=== PATIENT | male | born 1955 | race Caucasian/White ===

== ENCOUNTER 2019-02-09 09:27 | Emergency (ER) | payer BC, OTHER ==
[2019-02-09 09:41] VITALS: BP 155/93
--- NOTE | 2019-02-09 10:17 | ED ---
Adult Trauma - HPI Summary HPI Summary: 63 yr old male with left posterior chest wall pain. He fell about 6 feet onto the ground. He complains of pain that is 8/10 with movement, 2/10 at rest. No SOB. The patient denies LOC or neck pain. He denies abdominal pain. He denies dizziness. He has no other complaint. He denies smoking and any history of cancer. - History of Current Complaint Chief Complaint: UCBackPain Stated Complaint: RIGHT SIDE/BACK PAIN - FELL 6FOOT Time Seen by Provider: 02/09/19 09:42 Pain Intensity: 2 - Allergy/Home Medications Allergies/Adverse Reactions: Allergies Allergy/AdvReac Type Severity Reaction Status Date / Time codeine Allergy Rash Verified 02/09/19 09:35 other med name unknown Allergy Unknown Uncoded 02/09/19 09:35 Reaction Details Home Medications: Home Medications Acetaminophen [Acetaminophen Extra Strength] 1,000 mg PO Q6H PRN 02/09/19 [ History Confirmed 02/09/19] Allopurinol TAB* [Zyloprim 300 MG TAB*] 300 mg PO DAILY 02/09/19 [History Confirmed 02/09/19] Amlodipine Besylate/Benazepril [Lotrel 10-40 mg] 1 cap PO DAILY 02/09/19 [ History Confirmed 02/09/19] metFORMIN* [Glucophage 500 MG TAB *] 500 mg PO BID 02/09/19 [History Confirmed 02/09/19] PMH/Surg Hx/FS Hx/Imm Hx Endocrine/Hematology History: Reports: Hx Diabetes Cardiovascular History: Reports: Hx Hypertension - Surgical History Surgery Procedure, Year, and Place: cholecystectomy. hernia repair Infectious Disease History: No Infectious Disease History: Denies: Traveled Outside the [place] in Last 30 Days - Family History Known Family History: Positive: None - Social History Occupation: Employed Full-time Alcohol Use: Rare Substance Use Type: Reports: None Smoking Status (MU): Current Some Day Smoker Type: Cigars Review of Systems Constitutional: Negative Positive: Other - chest wall pain All Other Systems Reviewed And Are Negative: Yes Physical Exam Triage Information Reviewed: Yes Vital Signs On Initial Exam: Initial Vitals Temp Pulse Resp BP Pulse Ox 98.7 F 88 20 155/93 100 02/09/19 09:33 02/09/19 09:33 02/09/19 09:33 02/09/19 09:33 02/09/19 09:33 Vital Signs Reviewed: Yes Appearance: Positive: Well-Appearing, No Pain Distress Skin: Positive: Warm, Skin Color Reflects Adequate Perfusion Head/Face: Positive: Normal Head/Face Inspection Eyes: Positive: EOMI, MARGARET ENT: Positive: Normal ENT inspection Neck: Positive: Supple, Nontender Respiratory/Lung Sounds: Positive: Clear to Auscultation, Breath Sounds Present , Other - tender to palpation over the left posterior ribs in the posterior axillary line Cardiovascular: Positive: RRR. Negative: Murmur Abdomen Description: Positive: Nontender. Negative: CVA Tenderness (R), CVA Tenderness (L) Musculoskeletal: Positive: Strength/ROM Intact Neurological: Positive: Sensory/Motor Intact, Alert, Oriented to Person Place, Time, CN Intact II-III Psychiatric: Positive: Normal - Yair Coma Scale Best Eye Response: 4 - Spontaneous Best Motor Response: 6 - Obeys Commands Best Verbal Response: 5 - Oriented Coma Scale Total: 15 Diagnostics - Vital Signs Vital Signs Temp Pulse Resp BP Pulse Ox 02/09/19 09:33 98.7 F 88 20 155/93 100 - Laboratory Lab Statement: Any lab studies that have been ordered have been reviewed, and results considered in the medical decision making process. Adult Trauma Course/Dx - Course Course Of Treatment: It was communicated to the patient that he has lung nodules and he needs to follow up with his primary care doctor in the next 4-6 weeks for follow up and monitoring of these to be sure they are not cancer. - Diagnoses Provider Diagnoses: Chest wall trauma, Lung nodule, Hypertension Discharge - Sign-Out/Discharge Documenting (check all that apply): Patient Departure All imaging exams completed and their final reports reviewed: Yes - Discharge Plan Condition: Good Disposition: HOME Prescriptions: Ibuprofen TAB* [Motrin TAB* 600 MG] 600 mg PO Q6H PRN #20 tab PRN Reason: Pain Patient Education Materials: Chest Wall Pain (ED), Rib Fracture (ED), Pulmonary Nodules (ED), Hypertension (ED) Forms: *Work Release Referrals: No Primary Care Phys,NOPCP [Primary Care Provider] - Diony Polo MD [Medical Doctor] - 2 Days Additional Instructions: You have lung nodules on your CT chest, and you require follow up with your primary doctor to be sure they do not increase in size and that they are not cancerous. Be sure to follow up within the next 4-6 weeks. - Billing Disposition and Condition Condition: GOOD Disposition: Home
[2019-02-09] MEDS ORDERED: Acetaminophen TAB* 325 MG PO ONE (11:17)
[2019-02-09] MEDS ORDERED: Ibuprofen TAB* 600 MG PO ONE (11:17)
== END 2019-02-09 11:28 | disposition home or self-care (01) ==
LOC: UCCORT 09:27
DX: S29.9XXA Unspecified injury of thorax, initial encounter (principal); I10 Essential (primary) hypertension; E11.9 Type 2 diabetes mellitus without complications; F17.210 Nicotine dependence, cigarettes, uncomplicated; Z88.5 Allergy status to narcotic agent; Z88.9 Allergy status to unspecified drugs, medicaments and biological substances; Z79.84 Long term (current) use of oral hypoglycemic drugs; W19.XXXA Unspecified fall, initial encounter; Y92.9 Unspecified place or not applicable
CPT/HCPCS: 71250; 99202; A9270-GY; G0463

== ENCOUNTER 2019-10-23 08:33 | Emergency (ER) | payer OTHER ==
[2019-10-23 09:32] VITALS: BP 139/59
[2019-10-23] MEDS ORDERED: Tetan/Diph/Pertus SYR(Tdap)* 0.5 ML SYR(BOOSTRIX) use SYR contains LATEX IM ONE (10:06)
--- NOTE | 2019-10-23 10:31 | UC ---
Hand/Wrist HPI - HPI Summary HPI Summary: left hand pain and swelling x 2 hrs ago pain is 6 out of 10 , worse with movement , better with rest/ ice s/p injury at work [place] fell on his left hand / crushing injury + pain / swelling/ bruising - History Of Current Complaint Chief Complaint: UCUpperExtremity Stated Complaint: LEFT HAND INJURY Time Seen by Provider: 10/23/19 09:29 Hx Obtained From: Patient Onset/Duration: Sudden Onset, Lasting Hours - 2, Still Present Severity Initially: Moderate Severity Currently: Moderate Pain Intensity: 4 Character Of Pain: Dull, Aching Aggravating Factor(s): Movement, Lifting, Flexion, Extension Alleviating Factor(s): Rest, Ice Associated Signs And Symptoms: Positive: Swelling, Bruising, Weakness. Negative : Redness, Numbness/Tingling - Allergies/Home Medications Allergies/Adverse Reactions: Allergies Allergy/AdvReac Type Severity Reaction Status Date / Time codeine Allergy Rash Verified 10/23/19 09:32 other med name unknown Allergy Unknown Uncoded 10/23/19 09:32 Reaction Details Home Medications: Home Medications Famotidine 40 mg PO DAILY 10/23/19 [History Confirmed 10/23/19] PMH/Surg Hx/FS Hx/Imm Hx Endocrine History: Diabetes Cardiovascular History: Hypertension - Surgical History Surgical History: Yes Surgery Procedure, Year, and Place: cholecystectomy. hernia repair - Family History Known Family History: Positive: Diabetes - Social History Alcohol Use: Rare Substance Use Type: None Smoking Status (MU): Current Some Day Smoker Type: Cigars Review of Systems All Other Systems Reviewed And Are Negative: Yes Constitutional: Positive: Negative Is Patient Immunocompromised?: No Physical Exam Triage Information Reviewed: Yes Appearance: Well-Appearing, No Pain Distress, Well-Nourished Vital Signs: Initial Vital Signs Temp 98.2 F 10/23/19 09:29 Pulse 78 10/23/19 09:29 Resp 18 10/23/19 09:29 BP 139/59 10/23/19 09:29 Pulse Ox 97 10/23/19 09:29 Vital Signs Reviewed: Yes Eye Exam: Normal Eyes: Positive: Conjunctiva Clear ENT: Positive: Normal ENT inspection, Hearing grossly normal, Pharynx normal Neck: Positive: Supple Respiratory: Positive: Chest non-tender, Lungs clear, Normal breath sounds Cardiovascular: Positive: RRR, No Murmur, Pulses Normal Musculoskeletal: Positive: Other: - left hand : + swelling, brusing, diffuse tenderness, limited ROM on making a fist , extension and flexion of fingers Diagnostics - Radiology No standard instances Radiology Interpretation Completed By: Radiologist Summary of Radiographic Findings: xray report left hand : REPORT AND IMPRESSION : #. Soft tissue swelling over the dorsum of the hand at the level of the metacarpal phalangeal joints. Negative for fracture or malalignment. Preserved joint spaces. Hand/Wrist Course/Dx - Differential Dx/Diagnosis Provider Diagnosis: Crushing injury of left hand Discharge ED - Sign-Out/Discharge Documenting (check all that apply): Patient Departure All imaging exams completed and their final reports reviewed: Yes - Discharge Plan Condition: Stable Disposition: HOME Patient Education Materials: Crush Injury (ED) Forms: *Work Release Referrals: No Primary Care Phys,NOPCP [Primary Care Provider] - 7 Days - Billing Disposition and Condition Condition: STABLE Disposition: Home
== END 2019-10-23 10:26 | disposition home or self-care (01) ==
LOC: UCCORT 08:33
DX: S67.22XA Crushing injury of left hand, initial encounter (principal); E11.9 Type 2 diabetes mellitus without complications; I10 Essential (primary) hypertension; Z23 Encounter for immunization; F17.290 Nicotine dependence, other tobacco product, uncomplicated; M79.89 Other specified soft tissue disorders; Z88.5 Allergy status to narcotic agent; Z88.8 Allergy status to other drugs, medicaments and biological substances; W20.8XXA Other cause of strike by thrown, projected or falling object, initial encounter; Y92.9 Unspecified place or not applicable; Y99.0 Civilian activity done for income or pay
CPT/HCPCS: 90471; 90715; 99212; G0463